=== PATIENT | female | born 1975 | race Caucasian/White ===

== ENCOUNTER 2019-05-27 07:23 | Emergency (ER) | payer SELFPAY ==
[2019-05-27] MEDS ORDERED: Acetaminophen 500 MG TAB ONE (08:46)
== END 2019-05-27 08:47 | disposition home or self-care (01) ==
LOC: ERS 07:23
DX: J06.9 Acute upper respiratory infection, unspecified (principal); I10 Essential (primary) hypertension; F41.9 Anxiety disorder, unspecified; F31.9 Bipolar disorder, unspecified; F43.10 Post-traumatic stress disorder, unspecified; F17.210 Nicotine dependence, cigarettes, uncomplicated; Z79.899 Other long term (current) drug therapy
CPT/HCPCS: 99283